=== PATIENT | male | born 1985 | race Caucasian/White ===

== ENCOUNTER 2024-07-13 13:28 | Emergency (ER) | payer OTHER ==
[~2024-07-13] VITALS: Ht 177.8 cm; Wt 80.0 kg
[2024-07-13 13:31] VITALS: PULSE 70; TEMP 98; O2SAT 98
[2024-07-13] MEDS: CYCLOBENZAPRINE 10MG TABLET PO ONE (13:49)
[2024-07-13 14:12] VITALS: BP 134/71; RESP 16
[2024-07-13] MEDS: LIDOCAINE 5% PATCH TOP ONE (14:12)
[2024-07-13] MEDS ORDERED: CYCL10TA21 MT (14:47)
[2024-07-13] MEDS ORDERED: LIDO700A30 TP (14:48)
== END 2024-07-13 14:48 | disposition home or self-care (01) ==
LOC: ER 14:02
DX: S39.012A Strain of muscle, fascia and tendon of lower back, initial encounter (principal); W01.0XXA Fall on same level from slipping, tripping and stumbling without subsequent striking against object, initial encounter; Y93.89 Activity, other specified; Y92.89 Other specified places as the place of occurrence of the external cause; Y99.8 Other external cause status
CPT/HCPCS: 72131; 99284